=== PATIENT | male | born 1955 | race Caucasian/White ===

== ENCOUNTER 2016-12-23 20:10 | Emergency (ER) | payer SELFPAY ==
[~2016-12-23] VITALS: Ht 175.3 cm; Wt 85.5 kg
[2016-12-23 20:13] VITALS: Ht 175.3 cm; Wt 85.5 kg
== END 2016-12-24 02:14 | disposition left against medical advice (07) ==
LOC: E/R 20:10
DX: Z53.21 Procedure and treatment not carried out due to patient leaving prior to being seen by health care provider (principal)